=== PATIENT | female | born 1960 | race Caucasian/White ===

== ENCOUNTER → 2016-06-11 | Outpatient (CLI) | payer BC, OTHER ==
[~2016-06-11] MED LIST: ALAVERT10 M1 PO; ASPIRIN 32325 MG/TAB PO; ASPIRIN E.C.325 MG PO; CALCIUM + D 6001 TA1 PO; CELEXA40 MG PO; CENTRUM CARDIO PO; CLARITIN PO; CLOPIDOGREL; CLOPIDOGREL PO; CRESTOR20 MG PO; EFFIENT10 MG PO; FIBERCON 6625 MG/TAB PO; FLAXSEED OIL1000 MG PO; FORTAMET1000 MG PO; LEVOTHYROXINE0.05 MG PO; LEXAPRO 10MG10 MG PO; LEXAPRO10 MG PO; LISINOPRIL/HCTZ1 TAB PO; LISINOPRIL20 MG PO; LOPRESSOR 225 MG/TAB PO; LOPRESSOR PO; LORATADINE10 MG PO; LOW DOSE ASPIRI81 MG PO; MAREPA1200 MG PO; METFORMIN1000 MG PO; MVI; NASONEX SPRAY; NEXIUM 20MG CAP20 MG PO; NITROQUICK0.4 MG SL; NITROSTAT0.4 MG SL; OSCAL 500MG/VI500 MG PO; PHENTERMINE HCL15 MG PO; PLAVIX 75MG TAB75 MG PO; SYNTHROID0.05 MG PO; SYNTHROID0.05 MG/TA PO; TOPROL XL 50MG50 MG PO; TOPROL XL50 MG PO; VITAMIN C BUFF500 MG PO; VITAMIN D31000 IU PO; VITAMIN D50000 I1 PO; VYTORIN; VYTORIN 10 MG-21 TAB PO; [UNRECOGNIZED DRUG - OTHER] PO
== END ==
LOC: MC.RAD 14:32
DX: Z12.31 Encounter for screening mammogram for malignant neoplasm of breast (principal); D24.2 Benign neoplasm of left breast; Z85.3 Personal history of malignant neoplasm of breast

== ENCOUNTER → 2017-11-05 | Outpatient (CLI) | payer BC, OTHER | LOC: MC.RAD 08:17 | DX: Z12.31 Encounter for screening mammogram for malignant neoplasm of breast (principal) ==

== ENCOUNTER → 2018-05-05 | Outpatient (CLI) | payer BC, OTHER | LOC: SUN.DIA 10:18 | DX: E11.9 Type 2 diabetes mellitus without complications (principal); Z79.4 Long term (current) use of insulin; I10 Essential (primary) hypertension; E66.9 Obesity, unspecified | CPT/HCPCS: G0108 ==

== ENCOUNTER → 2018-05-17 | Outpatient (CLI) | payer BC, OTHER | LOC: SUN.DIA 09:59 | DX: E11.9 Type 2 diabetes mellitus without complications (principal); Z79.4 Long term (current) use of insulin; I10 Essential (primary) hypertension; E66.9 Obesity, unspecified | CPT/HCPCS: G0108 ==

== ENCOUNTER → 2018-06-08 | Outpatient (CLI) | payer BC, OTHER | LOC: SUN.DIA 09:12 | DX: E11.9 Type 2 diabetes mellitus without complications (principal); Z79.4 Long term (current) use of insulin; I10 Essential (primary) hypertension; E66.9 Obesity, unspecified | CPT/HCPCS: G0109 ==

== ENCOUNTER → 2018-06-15 | Outpatient (CLI) | payer BC, OTHER | LOC: SUN.DIA 08:53 | DX: E11.9 Type 2 diabetes mellitus without complications (principal); Z79.4 Long term (current) use of insulin; E66.9 Obesity, unspecified; I10 Essential (primary) hypertension | CPT/HCPCS: G0109 ==

== ENCOUNTER → 2018-06-22 | Outpatient (CLI) | payer BC, OTHER | LOC: SUN.DIA 13:53 | DX: E11.9 Type 2 diabetes mellitus without complications (principal); Z79.4 Long term (current) use of insulin; I10 Essential (primary) hypertension; E66.9 Obesity, unspecified | CPT/HCPCS: G0109 ==

== ENCOUNTER → 2018-06-29 | Outpatient (CLI) | payer BC, OTHER | LOC: SUN.DIA 15:50 | DX: E11.9 Type 2 diabetes mellitus without complications (principal); Z79.4 Long term (current) use of insulin; I10 Essential (primary) hypertension; E66.9 Obesity, unspecified | CPT/HCPCS: G0109 ==

== ENCOUNTER → 2018-07-26 | Outpatient (CLI) | payer BC, OTHER | LOC: SUN.DIA 12:39 | DX: E11.9 Type 2 diabetes mellitus without complications (principal); Z79.4 Long term (current) use of insulin; I10 Essential (primary) hypertension; E66.9 Obesity, unspecified ==

== ENCOUNTER → 2018-11-28 | Outpatient (CLI) | payer BC, OTHER | LOC: MC.RAD 14:58 | DX: Z12.31 Encounter for screening mammogram for malignant neoplasm of breast (principal) ==

== ENCOUNTER → 2019-12-08 | Outpatient (CLI) | payer BC, OTHER | LOC: MC.RAD 10:51 | DX: Z12.31 Encounter for screening mammogram for malignant neoplasm of breast (principal) ==

== ENCOUNTER 2020-02-25 23:10 | Emergency (ER) | payer BC, OTHER ==
[~2020-02-25] VITALS: Ht 162.6 cm; Wt 88.6 kg
[2020-02-25 23:12] VITALS: TEMP 98.8
[2020-02-25 23:30] LABS: BASO % 0.2 % (0.0-2.0); EOS # 0.3 (0.0-0.7); EOS % 2.3 % (0-4.0); GRAN # 7.4 (1.4-6.5); GRAN % 53.5 % (42.2-75.2); LYMPH # 4.9 (1.2-3.4); LYMPH % 35.1 % (20.0-51.0); MEAN CELL VOLUME 86 fl (80.0-100.0); MEAN CORPUSCULAR HEMOGLOBIN 30 pg (27.0-31.0); MEAN CORPUSCULAR HGB CONC 35 g/dl (33.0-37.0); MEAN PLATELET VOLUME 10.1 fl (7.4-10.4); MONO # 1.2 (0.1-0.6); MONO % 8.5 % (1.7-9.3); PLATELET COUNT 320 K/mm3 (130-400); RED BLOOD COUNT 5.71 M/mm3 (4.10-5.30); REDCELL DISTRIBUTION WIDTH-CV 13.2 % (11.5-14.5)
[2020-02-25 23:31] LABS: INR 1.1 (0.8-3.0); PROTHROMBIN TIME 12.8 SECONDS (9.7-12.8)
[2020-02-25 23:35] LABS: ALANINE AMINOTRANSFERASE 36 U/L (4-34); ALBUMIN 4.4 gm/dL (3.5-5.0); ALKALINE PHOSPHATASE 63 U/L (50-136); ANION GAP 11 mmol/L (7-16); AST,SGOT 38 U/L (15-37); BILIRUBIN,TOTAL 0.7 mg/dL (0.0-1.0); BLOOD UREA NITROGEN 20 mg/dL (7-17); CALCIUM 9.7 mg/dL (8.4-10.2); CARBON DIOXIDE 24 mmol/L (22-30); CHLORIDE 99 mmol/L (98-107); CREATININE, serum 0.73 (0.52-1.25); GLUCOSE 185 mg/dL (74-106); POTASSIUM 3.2 mmol/L (3.4-5.0); SODIUM 135 mmol/L (137-145); TOTAL PROTEIN 7.5 gm/dL (6.4-8.2)
[2020-02-25 23:47] LABS: TROPONIN-I < 0.012 ng/mL (0.000-0.035)
[2020-02-26 00:01] LABS: COLLECTION METHOD CLEAN CATCH
[2020-02-26 00:15] LABS: MUCOUS Present /lpf; PH 5 (5-8); SQUAMOUS EPITHELIAL 0-2 /hpf; URINE APPEARANCE Hazy; URINE BACTERIA None Seen /hpf; URINE BILIRUBIN Negative (NEGATIVE); URINE BLOOD Negative (NEGATIVE); URINE COLOR Yellow; URINE GLUCOSE 3+ (NEGATIVE); URINE KETONE Negative (NEGATIVE); URINE LEUKOCYTE ESTERASE Negative (NEGATIVE); URINE NITRATE Negative (NEGATIVE); URINE PROTEIN(semi-quant) 2+ (NEGATIVE); URINE UROBILINOGEN Negative (NEGATIVE)
[2020-02-26] MEDS ORDERED: COZAAR 50MG50 MG/TAB PO (01:17)
[2020-02-26] MEDS ORDERED: HCTZ 25MG TAB25 MG PO (01:17)
[2020-02-26] MEDS ORDERED: OZEMPIC1 MG/0.75 SQ (01:18)
[2020-02-26] MEDS ORDERED: VITAMIN D31000 I1 PO (01:19)
[2020-02-26] MEDS ORDERED: THE MEDICINE S200 M2 PO (01:19)
[2020-02-26] MEDS ORDERED: VITAMIN C500 MG PO (01:19)
[2020-02-26 03:20] VITALS: BP 128/76; PULSE 74
== END 2020-02-26 03:20 | disposition home or self-care (01) ==
LOC: COL.ER 23:10
PROVIDERS: Emergency Medicine
DX: E86.9 Volume depletion, unspecified (principal); K52.9 Noninfective gastroenteritis and colitis, unspecified; I10 Essential (primary) hypertension; E11.9 Type 2 diabetes mellitus without complications; I25.2 Old myocardial infarction; I25.10 Atherosclerotic heart disease of native coronary artery without angina pectoris; Z90.49 Acquired absence of other specified parts of digestive tract; Z95.1 Presence of aortocoronary bypass graft; Z95.5 Presence of coronary angioplasty implant and graft; Z88.2 Allergy status to sulfonamides; Z79.84 Long term (current) use of oral hypoglycemic drugs; Z79.82 Long term (current) use of aspirin
CPT/HCPCS: J2405; J7030; J7120

== ENCOUNTER → 2020-12-30 | Outpatient (CLI) | payer BC, OTHER ==
[~2020-12-30] MED LIST changes: +COZAAR 50MG50 MG/TAB PO; +HCTZ 25MG TAB25 MG PO; +OZEMPIC1 MG/0.75 SQ; +THE MEDICINE S200 M2 PO; +VITAMIN C500 MG PO; +VITAMIN D31000 I1 PO
== END ==
LOC: MC.RAD 13:28
DX: Z12.31 Encounter for screening mammogram for malignant neoplasm of breast (principal)

== ENCOUNTER → 2022-10-07 | Outpatient (CLI) | payer BC, OTHER | LOC: MC.RAD 14:53 | DX: Z12.31 Encounter for screening mammogram for malignant neoplasm of breast (principal) ==